=== PATIENT | female | born 1960 | race Caucasian/White ===

== ENCOUNTER → 2016-09-25 | Outpatient (CLI) | payer BC ==
[~2016-09-25] MED LIST: ASPI1TAB69 PO; CALC1TAB87 PO; DIPH25CA PO; ESTRAVEN PO; LOVA20TA PO; MULT1TAB78 PO; NIAC100T2 PO; OMEGCAP PO; OXYC1TAB63 PO
--- NOTE | 2016-09-26 15:50 | EKG ---
Date Performed: 09/25/2016 Time Performed: 13:17:44 PTAGE: 56 years EKG: SINUS BRADYCARDIA BORDERLINE ECG NO PREVIOUS TRACING DOCTOR: Salinas Rivera Interpretating Date/Time 09/26/2016 15:47:35
== END ==
LOC: CPRE 12:53
PROVIDERS: ATTEND Obstetrics & Gynecology
DX: Z01.810 Encounter for preprocedural cardiovascular examination (principal); D39.10 Neoplasm of uncertain behavior of unspecified ovary
CPT/HCPCS: 93005

== ENCOUNTER 2016-09-29 13:26 | Inpatient (IN) | payer BC ==
--- NOTE | 2016-09-28 13:13 | MH ---
cc: LUIS DANIEL ASHLEY,CORY Short MD DATE OF ADMISSION: 09/29/2016 ADMITTING DIAGNOSIS Right ovarian mass and fibroid. HISTORY OF PRESENT ILLNESS The patient is a 56-year-old white female, para 3-0-0-3, who was seeing her primary doctor for evaluation of abdominal wall hernias. Dr. Felicia Medina felt a mass. She obtained a CT scan on 09/07/2016 which showed an enlargement on the right side, cystic. There was no free fluid. There was no adenopathy or signs of any metastatic disease. An ultrasound was obtained on 09/08/2016 which showed a complex mass on the right side and possibly a fibroid as well. She was seen by me on 09/10/2016. Her Pap smear was normal. Her CA-125 was 41, slightly elevated. Alpha-1 was 5, slightly elevated. She is now admitted for surgical treatment. She has a longstanding umbilical hernia which she would like to have repaired at the same time. PAST MEDICAL HISTORY PREVIOUS SURGERY 1. Tubal ligation in 1981. 2. Cervical polyps in 2004. MEDICATIONS 1. Vitamins. 2. Lovastatin. ALLERGIES None. TRANSFUSIONS None. OB HISTORY Three vaginal deliveries. SOCIAL HISTORY She is . She works at [employer]. Alcohol, tobacco and drugs are none. PHYSICAL EXAMINATION GENERAL: A well-nourished, well-developed white female. VITAL SIGNS: Stable. HEENT: Exam is normal. CHEST: Clear. HEART: Regular rate. BREASTS: Symmetrical. ABDOMEN: Benign, possible umbilical hernia. PELVIC: Vagina is normal. Cervix is normal. Uterus is normal size with a mobile mass on the right side about 9 cm. RECTAL: Deferred. ASSESSMENT As above. PLAN She is now admitted for surgery. She has had a preoperative bowel prep. She will have laparoscopy with a likely laparotomy, CRESENCIO, BSO, possible omentectomy or lymph node sampling. Dr. Hwang has been consulted. He will be available if malignancy is found to perform the additional surgery. While in the office I explained the procedures, the risks, benefits and complications. The patient elected to proceed. Luis Daniel Ashley MD JAW/BT /12:49 PM /12:56 PM MTDLynne
[~2016-09-29] VITALS: Ht 156.2 cm; Wt 52.2 kg
[~2016-09-29 13:26] MED LIST changes: +BUPIVACAINE LIPOSOME PF 1.3% 20 ML VIAL ONE; +LACTATED RINGER'S 1000 ML INJ 1,000 ML IV ONE; +NORMOSOL R INJ 1,000 ML IV ONE; +ONDANSETRON HCL 4 MG/2 ML VIAL IV PUSH ONE; -OXYC1TAB63 PO
[2016-09-29 13:51] VITALS: BP 115/69; PULSE 65; RESP 16; TEMP 98; O2SAT 99
[2016-09-29] MEDS ORDERED: ceFAZolin 2 GM PREMIX 50 ML ONE (13:52)
[2016-09-29] MEDS ORDERED: ACETAMINOPHEN 1000 MG/100 ML VIAL IV ONE ×2 (13:57→14:00)
[2016-09-29] MEDS ORDERED: METOPROLOL TARTRATE 25 MG TAB PO PRN (14:00)
[2016-09-29] MEDS ORDERED: LACTATED RINGER'S 1000 ML IV SCH (14:00)
[2016-09-29] MEDS ORDERED: ceFAZolin 2 GM PREMIX 50 ML IV SCH (14:00)
[2016-09-29] MEDS ORDERED: SODIUM CHLORID 0.9% 500 ML IV SCH (14:00)
[2016-09-29] MEDS ORDERED: INSULIN HUMAN REGULAR 1,000 UNITS/10 ML VIAL SQ PRN (14:00)
[2016-09-29] MEDS ORDERED: NEOSTIGMINE 3 MG/3 ML SYR IV ONE (14:02)
[2016-09-29] MEDS ORDERED: KETOROLAC TROMETHAMINE 60 MG/2 ML (IM) VIAL IM ONE (14:02)
[2016-09-29] MEDS ORDERED: PROPOFOL 200 MG/20 ML AMP IV ONE (14:02)
[2016-09-29] MEDS ORDERED: NORMOSOL R INJ 1,000 ML IV ONE (14:03)
[2016-09-29] MEDS ORDERED: LACTATED RINGER'S 1000 ML INJ 1,000 ML IV ONE (14:03)
[2016-09-29] MEDS ORDERED: LACTATED RINGER'S 1,000 ML BAG ONE (14:03)
[2016-09-29] MEDS ORDERED: ONDANSETRON HCL 4 MG/2 ML VIAL ONE (14:03)
[2016-09-29] MEDS ORDERED: PARENTERAL ELECTROLYTES PH 7.4 1000 ML BAG ONE (14:03)
[2016-09-29] MEDS ORDERED: FAMOTIDINE 20 MG/2 ML VIAL ONE (14:30)
[2016-09-29] MEDS ORDERED: MIDAZOLAM HCL 5 MG/5 ML VIAL ONE (14:30)
[2016-09-29] MEDS ORDERED: DEXAMETHASONE SOD PHOS 4 MG/ML VIAL ONE (14:30)
[2016-09-29] MEDS ORDERED: ZOLPIDEM TARTRATE 5 MG TAB PO PRN (17:30)
[2016-09-29] MEDS ORDERED: ONDANSETRON ODT 4 MG TAB PO PRN (17:30)
[2016-09-29] MEDS ORDERED: SODIUM CHLORIDE 0.9% FLUSH 5 ML FLUSH FLUSH PRN (17:30)
[2016-09-29] MEDS ORDERED: ONDANSETRON HCL 4 MG/2 ML VIAL IV PRN (17:30)
[2016-09-29] MEDS ORDERED: NALOXONE HCL 0.4 MG/ML AMP IV PRN (17:30)
[2016-09-29] MEDS ORDERED: diphenhydrAMINE HCL 25 MG CAP PO PRN (17:30)
[2016-09-29] MEDS ORDERED: PROMETHAZINE HCL 25 MG TAB PO PRN (17:30)
[2016-09-29] MEDS ORDERED: MORPHINE SULFATE 30 MG/30 ML PCA IV SCH (17:30)
[2016-09-29] MEDS ORDERED: *MEPERIDINE 25 MG INJ VIAL PERIprocedural Use ONLY ONE (17:48)
[2016-09-29] MEDS ORDERED: fentaNYL CITRATE 250 MCG/5 ML AMP ONE (17:52)
[2016-09-29] MEDS ORDERED: *ONDANSETRON 4 MG VIAL PERIprocedural Use ONLY ONE (18:00)
[2016-09-29] MEDS: KETOROLAC TROMETHAMINE 30 MG/ML (IVP) VIAL IVP SCH (18:00)
[2016-09-29] MEDS: D5-1/2 NS + KCL 20 MEQ INJ 1,000 ML IV SCH (18:14)
[2016-09-29] MEDS ORDERED: PROMETHAZINE HCL 25 MG SUPP ONE (18:23)
[2016-09-29] MEDS ORDERED: PROMETHAZINE HCL 25 MG SUPP RECTAL ONE (18:30)
[2016-09-29] MEDS ORDERED: DO NOT ADM ANY ANTICOAGULANT DRUGS XX PRN (18:30)
[2016-09-29 18:55] VITALS: BP 125/73; PULSE 55; RESP 17; TEMP 97.6; O2SAT 100
[2016-09-29 19:42] LABS: HEMATOCRIT 34.7 % (35.0-46.0); REVIEW FLAG FINAL
[2016-09-29] MEDS ORDERED: SODIUM CHLORIDE 0.9% FLUSH 5 ML FLUSH FLUSH SCH (21:00)
[2016-09-29 22:00] VITALS: RESP 17; O2SAT 98
[2016-09-29] MEDS ORDERED: PCA - TOTAL MG MORPHINE DELIVERED PER SHIFT SCH (22:00)
[2016-09-29] MEDS: DOCUSATE SODIUM 100 MG CAP PO SCH (22:20)
[2016-09-29] MEDS: ACETAMINOPHEN 1000 MG/100 ML VIAL IV SCH (22:21)
[2016-09-30 00:10] VITALS: BP 95/57; PULSE 64; RESP 16; TEMP 98.6; O2SAT 98
[2016-09-30] MEDS: KETOROLAC TROMETHAMINE 30 MG/ML (IVP) VIAL IVP SCH ×3 (00:14→12:30)
[2016-09-30] MEDS: D5-1/2 NS + KCL 20 MEQ INJ 1,000 ML IV SCH ×4 (01:41→13:20)
[2016-09-30 05:10] VITALS: BP 107/62; PULSE 76; RESP 16; TEMP 98.9; O2SAT 97
[2016-09-30] MEDS: ACETAMINOPHEN 1000 MG/100 ML VIAL IV SCH ×2 (06:07→14:28)
[2016-09-30 06:34] LABS: POTASSIUM 4.1 MEQ/L (3.5-5.1)
[2016-09-30 06:35] LABS: AUTOMATED NEUTROPHIL # 7.2 TH/MM3 (1.8-7.7); BASOPHIL % 0.1 % (0.0-2.0); HEMATOCRIT 30.9 % (35.0-46.0); HEMO FLAGS DIFF FINAL; LYMPH % 15.9 % (9.0-44.0); LYMPHOCYTE # 1.6 TH/MM3 (1.0-4.8); MEAN CORPUSCULAR HEMOGLOBIN 30.2 PG (27.0-34.0); MEAN CORPUSCULAR HGB CONC 34.4 % (32.0-36.0); PLATELET COUNT 183 TH/MM3 (150-450); RED BLOOD COUNT 3.51 MIL/MM3 (4.00-5.30); RED CELL DISTRIBUTION WIDTH 13.1 % (11.6-17.2); WHITE BLOOD COUNT 10.1 TH/MM3 (4.0-11.0)
[2016-09-30] MEDS: DOCUSATE SODIUM 100 MG CAP PO SCH ×2 (08:14→21:38)
[2016-09-30 08:39] VITALS: BP 97/57; PULSE 58; RESP 16; TEMP 98.3
[2016-09-30 14:40] VITALS: BP 96/59; PULSE 69; RESP 18; TEMP 97.9
[2016-09-30 18:07] VITALS: BP 100/62; PULSE 62; RESP 18; TEMP 98.4
[2016-09-30] MEDS ORDERED: oxyCODONE/ACETAMINOPHEN 5 MG/325 MG TAB PO PRN ×2 (18:30)
[2016-09-30] MEDS: IBUPROFEN 600 MG TAB PO PRN (18:31)
[2016-09-30 19:50] VITALS: BP 101/62; PULSE 62; RESP 18; TEMP 97.6
[2016-10-01 00:35] VITALS: BP 100/60; PULSE 65; RESP 16; TEMP 98.4
[2016-10-01] MEDS: IBUPROFEN 600 MG TAB PO PRN ×2 (00:36→05:57)
[2016-10-01] MEDS ORDERED: OXYC1TAB63 PO (08:17)
--- NOTE | 2016-10-01 08:18 | HHI.DCPOC ---
Discharge Care Plan Report Symptoms to Your Doctor -Temperate above 100.5 degrees -Redness, of incision or excessive or foul smelling drainage -Unusual pain or calf pain -Increased vaginal bleeding -Painful or difficulty urinating -Feelings of extreme sadness or anxiety after 2 weeks Goals to Promote Your Health * To prevent worsening of your condition and complications * To maintain your health at the optimal level Directions to Meet Your Goals Take your medications as prescribed Follow your dietary instruction Follow activity as directed Ensure plenty of rest for recovery Drink fluids for hydration Keep your appointments as scheduled Take your immunizations and boosters as scheduled If your symptoms worsen call your PCP, if no PCP go to Urgent Care Center or Emergency Room Smoking is Dangerous to Your Health. Avoid second hand smoke Call the 24-hour crisis hotline for domestic abuse at Dashawn Elise MD Oct 01, 2016 08:18
--- NOTE | 2016-10-01 09:11 | MP ---
cc: GABILUIS DANIEL DATE OF SURGERY: 09/29/2016 PREOPERATIVE DIAGNOSIS Right ovarian mass. POSTOPERATIVE DIAGNOSIS Right ovarian fibroma. PROCEDURE Laparoscopy followed by laparotomy with a CRESENCIO-BSO and repair of a small umbilical hernia. ANESTHESIA General ET. SURGEON Luis Daniel Elise MD [employer] Angelique Lino. ESTIMATED BLOOD LOSS About 50 ccs. FLUIDS 2 liters crystalloid. OBJECTIVE FINDINGS Following induction of adequate general endotracheal anesthesia the patient was prepped and draped supine on the operating table in the dorsal lithotomy position in sterile fashion with the bladder being drained via Campbell catheterization. The abdomen was opened with 1/2 cm incision below her umbilical hernia. A 5 port was placed. Laparoscope was inserted and a second port placed in the left lower quadrant. Pelvis showed about a 12 cm firm right ovarian mass, mobile. The left tube and ovary were normal, uterus was normal, cul-de-sacs were clear. Appendix was normal, liver edge was normal. There were no signs of malignancy. The laparoscope was then removed. The abdomen was opened through a Pfannenstiel incision using a knife to cut down through skin to the fascia. Fascia was opened transversely, stripped from the muscles. Rectus muscle was split in the midline and the peritoneum opened sharply without incident. Peritoneal washings were collected for cytology. The bowel was packed out of the operative field. The elastic protractor was placed and each uterine cornu held with Hilda clamps. Using the Enseal handheld device the right utero-ovarian pedicle and the right ovarian pedicle were taken which allowed for excision of the right tube and ovary for frozen section. Then on the left side, the Enseal device was used to take the left round ligament, left -ovarian pedicle and left broad ligament. The bladder flap was then dissected clear with sharp dissection. Uterine vessels were taken on the right with the Enseal in the left. A straight Bibiana clamp was then used to take the right cardinals, clamping, cutting, ligated with 0-Vicryl, then the left, and right uterosacral in the same fashion. At this point it was possible to open the anterior vaginal wall and the cervix was excised from the vaginal cuff with cutting Bovie, sending the uterus, cervix, left tube and ovary for permanent study. Irrigation was performed, no bleeding was evident. The cuff was then closed with each corner with a modified Rsoe's 0 Vicryl and the remainder of the cuff was closed with running locking stitch of 0-Vicryl. The frozen section returned benign. The small umbilical hernia was identified. The peritoneal sac was held with a hemostat and sutures were placed in the fascia from below. The sac was excised and the fascia closed with interrupted sutures of 0-Vicryl. The pelvis was inspected. Ureters were inspected. There was no bleeding, good peristalsis. The operative sites were coated with Evicel. The lap and retractors were removed. Counts were correct. The anterior peritoneum was closed with running stitch of 2-0 Vicryl, the fascia with a running locking stitch of 0-Vicryl corner to midline and tied, subcu with running 3-0 Vicryl, skin with running subcuticular 3-0 Monocryl. Dermabond was applied. The umbilicus wound was closed with 3-0 Monocryl. Dermabond was applied. All counts were correct. The patient's legs were taken down from the stirrups. She was awakened and taken to the recovery room in good condition. MD TAD Gonzalez/MONICA /5:31 PM /8:48 AM ELIESER
--- NOTE | 2016-10-08 08:05 | MD ---
cc: LUIS DANIEL ASHLEY M.D. ADMISSION DATE: 09/29/2016 DISCHARGE DATE: 10/01/2016 ADMISSION DIAGNOSIS Right ovarian mass and fibroids. DISCHARGE DIAGNOSIS Right ovarian mass and fibroids, pathology pending, plus umbilical hernia. PROCEDURES Laparoscopy followed by a CRESENCIO/BSO and repair of umbilical hernia. HISTORY OF PRESENT ILLNESS This is a 56-year-old white female para 3-0-0-3 who had seen her family doctor regarding dilation for abdominal hernias. Dr. Felicia Medina felt a mass. She obtained a CT scan on 09/07/2016 which showed an enlargement on the right side. No free fluid. No adenopathy or signs of metastatic disease. Ultrasound on 09/08/2016 showed a complex mass on the right side and possibly a fibroid. She was seen by me on 09/10/2016. Her Pap smear was normal. Her CA-125 was 41. The one slightly elevated. She was admitted for surgery. She had a long-standing umbilical hernia and wanted to have it repaired at the same time. HOSPITAL COURSE On the day of surgery, she underwent laparoscopy which revealed a 12 cm firm right adnexal mass. The uterus was normal size and shape as was the left ovary. There were no signs of any metastatic disease. The peritoneal surfaces were all normal as was the peritoneal fluid. This was converted to a laparotomy. Frozen section on the right ovary returned fibroma benign. She underwent a CRESENCIO/BSO and repair of a small umbilical hernia. Postop did well with gradual advancement of diet and activity and was discharged home in excellent condition on 10/01/2016. Advised NPV, light activity, no driving, return to see me in two weeks and to call for abnormal pain, bleeding, temperature, signs infection. She will take her routine meds at home and was given prescriptions for: 1. Zofran ODT 8 mg p.o. q8h as needed nausea/vomiting #10. 2. Percocet 5, one to two p.o. every four hours prn/pain #60. MD TAD Gonzalez/ABIGAIL /8:35 AM /7:59 AM
== END 2016-10-01 09:42 | disposition home or self-care (01) | DRG 743 ==
LOC: HSDC 13:26 → EDUNIT# 15:30 → HSDI 17:26 → H1EA 18:54
PROVIDERS: ADMIT Obstetrics & Gynecology; ATTEND Obstetrics & Gynecology
PROC: 0UT20ZZ Resection of Bilateral Ovaries, Open Approach (ICD-10-PCS; 2016-09-29)
PROC: 0UT70ZZ Resection of Bilateral Fallopian Tubes, Open Approach (ICD-10-PCS; 2016-09-29)
PROC: 0WQF0ZZ Repair Abdominal Wall, Open Approach (ICD-10-PCS; 2016-09-29)
PROC: 0UT90ZZ Resection of Uterus, Open Approach (ICD-10-PCS; principal; 2016-09-29 15:40)
PROC: 0UJD4ZZ Inspection of Uterus and Cervix, Percutaneous Endoscopic Approach (ICD-10-PCS; 2016-09-29 15:40)
DX: D27.0 Benign neoplasm of right ovary (principal); K42.9 Umbilical hernia without obstruction or gangrene
CPT/HCPCS: 80048; 85014; 85018; 85025; 88302; 88305; 88307; 88331; 94150; C9290; J0131; J0690; J1100; J1885; J2175; J2250; J2270; J2405; J2710; J3010; J3480; J7120